=== PATIENT | female | born 1955 | race Caucasian/White ===

== ENCOUNTER 2020-01-29 20:13 | Emergency (ER) | payer MEDICARE, BC ==
[~2020-01-29] VITALS: Ht 167.6 cm; Wt 73.9 kg
[2020-01-29 20:06] VITALS: BP 139/90
--- NOTE | 2020-01-29 20:15 | NUR ---
ED Nurse Note: Patient BINDU RA61 from home c/o right knee pain S/P fall this evening while mopping the floor. Stated that she is unable to bear weight on the affected leg and reports 6/10 pain. Pt is not in any distress. ERMD at bedside.
--- NOTE | 2020-01-29 20:19 | Emergency Room Report ---
History of Present Illness General Chief Complaint: Lower Extremity Injury Source: Patient Present Illness HPI Patient presents with complaints of fall and injury to the right knee reports that she has pain when trying to bear weight reports that she was mopping earlier this evening and essentially felt her lower leg Pushing out towards the right side while her knee remained towards the middle area She feels very unstable on her leg reports that she had a major trauma and has ' no hamstring' Denies any pelvic pain denies any other trauma to the upper extremity denies any pain to the ankle COVID-19 risk:Contact w/high r: No COVID-19 risk:Travel to affect: No Has patient experienced arnold: No Allergies: Coded Allergies: No Known Allergies (Unverified , 01/29/20) Patient History Past Medical History: see triage record Last Menstrual Period: NA Now: No : 1 Para: 1 Reviewed Nursing Documentation: PMH: Agreed; PSxH: Agreed Nursing Documentation-PMH Hx Asthma: Yes Hx COPD: Yes - BRONCHITIS Review of Systems All Other Systems: negative except mentioned in HPI Physical Exam Vital Signs Date Time Temp Pulse Resp B/P (MAP) Pulse Ox O2 Delivery O2 Flow Rate FiO2 01/29/20 20:06 98.4 87 16 139/90 (106) 91 Room Air Sp02 EP Interpretation: reviewed, normal General Appearance: well appearing, no apparent distress Eyes: bilateral eye PERRL, bilateral eye EOMI ENT: EOM grossly intact Neck: supple Respiratory: lungs clear, no respiratory distress Gastrointestinal: non tender, soft Musculoskeletal: other - Patient has a mobile patella, however there is a small hematoma laterally patient reports this is not normal Neurologic: alert, oriented x3 Skin: no rash Lymphatic: no adenopathy Procedures Splinting Splinting : Consent: Verbal Location: Right knee Pre-Made Type: knee immobilizer Pre-Proc Neuro Vasc Exam: normal Post-Proc Neuro Vasc Exam: normal Patient Tolerated: Well Complications: None Medical Decision Making Diagnostic Impression: Primary Impression: Knee sprain Additional Impression: Right knee sprain ER Course Given the above history and presentation multiple differentials including but not limited to orthopedic such as fractures, ligamental injury such as ACL PCL , other ligamental, other meniscal injury entertained X-ray imaging is obtained no obvious acute process is seen patient was placed in a knee immobilizer Patient has request for a scooter reports that she is not able to use crutches or a walker Patient has no acute upper extremity injuries There is no other acute intervention emergently possible Patient is also encouraged and discussed regarding further outpatient testing necessity such as MRI Unfortunately at this time not emergently indicated Patient is encouraged to follow closely with outpatient primary physician Other X-Ray Diagnostic Results Other X-Ray Diagnostic Results : X-Ray ordered: Right knee # of Views/Limited Vs Complete: 3 View Indication: Pain EP Interpretation: Yes Interpretation: no dislocation, no soft tissue swelling, no fractures Impression: No acute disease Electronically Signed by: Catarina Bermudez DO Last Vital Signs Date Time Temp Pulse Resp B/P (MAP) Pulse Ox O2 Delivery O2 Flow Rate FiO2 01/29/20 20:06 98.4 87 16 139/90 (106) 91 Room Air Status: improved Disposition: HOME, SELF-CARE Condition: Improved Additional Instructions: Patient is provided with the discharge instructions notified to follow up with primary doctor in the next 2-3 days otherwise return to the er with any worsening symptoms. Please note that this report is being documented using [employer] technology. This can lead to erroneous entry secondary to incorrect interpretation by the dictating instrument. Catarina Bermudez DO Jan 29, 2020 20:19
--- NOTE | 2020-01-29 20:24 | NUR ---
ED Nurse Note: Xray at bedside.
--- NOTE | 2020-01-29 21:00 | NUR ---
ED Nurse Note: Pt cleared by ERMD for discharge. DC instructions was given and explained to pt and verbalized understanding of teachings. All medical deviecs such as ID band removed. Pt is AAO x4, ambulatory and left with all personal belongings. Immobilizer was applied and crutches were provided. Pt took an uber going home.
--- NOTE | 2020-01-30 12:18 | Diagnostic Imaging Report ---
Indication: Right knee Pain 3 views of the right knee were obtained. Findings: No acute fracture, malalignment, or joint effusion are identified. Joint space narrowing and marginal periarticular osteophytes are present. Impression: Negative for acute findings. Osteoarthritis
== END 2020-01-29 21:00 | disposition home or self-care (01) ==
LOC: EDBD 20:13 → EMR 20:25
DX: M25.561 Pain in right knee (principal); J44.9 Chronic obstructive pulmonary disease, unspecified; S80.02XA Contusion of left knee, initial encounter; X58.XXXA Exposure to other specified factors, initial encounter; Y92.9 Unspecified place or not applicable
CPT/HCPCS: 29505; 99283